=== PATIENT | male | born 1935 | race Caucasian/White ===

== ENCOUNTER 2024-03-25 14:05 | Emergency (ER) | payer OTHER, BC ==
[2024-03-25] MEDS ORDERED: NA CHLORIDE 0.9% 1,000 ML ONE (14:54)
--- NOTE | 2024-03-25 15:03 | RAD REPORT ---
EXAMINATION: ONE VIEW CHEST XR CLINICAL INDICATION: Male, 88 years old.,COUGH TECHNIQUE: Frontal chest projection is submitted. Examination is limited by patient positioning and t echnique. COMPARISON: 08/12/2022 FINDINGS: The lungs are well inflated and clear apart from stable left basilar atelectasis. No pneumothorax or sizable effusion. The heart is normal in size. Mediastinal contours are unremarkable. IMPRESSION: No acute intrathoracic abnormalities.
[2024-03-25 15:08] LABS: Absolute Basophils 0.1 K/uL (0-0.5); Absolute Lymphocytes (CBC) 0.7 K/uL (0.7-4.9); Absolute Monocytes 0.7 K/uL (0.1-1.3); Absolute Neutrophil 5.1 K/uL (1.8-8.0); Basophils % 0.9 % (0-1.3); Eosinophils % 0.3 % (0-4.4); Hematocrit 35.3 % (39.6-49.0); Hemoglobin 11.4 g/dL (13.6-17.9); Lymphocytes % 10.2 % (15.3-44.8); MCH 26.5 pg (27.0-35.0); MCHC 32.2 g/dL (32.0-36.0); MCV 82.2 fL (80-100); MPV 7.5 fL (7.6-11.3); Monocytes % 11.2 % (3.3-12.3); Neutrophils % 77.4 % (41.7-73.7); Platelets 173 thou/uL (152-406); Red Cell Distribution Width 18.4 % (12.1-15.2)
[2024-03-25 15:12] LABS: Anion Gap 9.7 mEq/L (5.0-15.0); Potassium 3.7 mEq/L (3.5-5.1); Troponin High Sensitivity 6.9 pg/mL (<58.9)
--- NOTE | 2024-03-25 15:59 | EDPHYS ---
Physician Documentation [facility] Name: Kevin Bautista Age: 88 yrs Sex: Male : 1935 Arrival Date: 03/25/2024 Time: 14:05 Bed 14 Private MD: ED Physician Rasheed Armas HPI: 03/25 14:25 This 88 yrs old Male presents to ER via EMS with complaints of Syncope. ec2 14:25 Patient arrives today for evaluation of this. Patient reports that he was getting out ec2 of his car, became lightheaded and almost passed out where he needed to be lowered down. Some decreased PO intake yesterday, some nausea, no vomiting. Some bouts of diarrhea as well. . Historical: - Allergies: 14:16 Iodine; me1 - PMHx: 14:16 Atrial fibrillation; diabetes mellitus; Hypercholesterolemia; Hypertensive disorder; me1 neuropathy; - PSHx: 14:16 Tonsillectomy; Repair of inguinal hernia; Hemorrhoidectomy; me1 - Immunization history:: Adult Immunizations up to date. - Infectious Disease History:: Denies. - Social history:: Smoking status: Patient/guardian denies using tobacco, but has a distant history of tobacco abuse. ROS: 14:25 Constitutional: as per hpi ec2 Exam: 14:25 Constitutional: GEN: NAD Head: atraumatic Eyes: EOMI Ears: External ears are ec2 normal. CV: regular rate LUNGS: no respiratory distress ABD: non-distended, soft, non-tender SKIN: no evidence of rashes MSK: no evidence of trauma Vital Signs: 14:10 BP 108 / 59; Pulse 80; Resp 18; Temp 98.4; Pulse Ox 98% ; Weight 102.06 kg; Height 5 me1 ft. 11 in. ; Pain 0/10; 15:00 BP 115 / 63; Pulse 77; Resp 22; Pulse Ox 98% ; me1 16:00 BP 111 / 68; Pulse 62; Resp 18; Temp 98.7; Pulse Ox 100% ; me1 14:10 Body Mass Index 31.38 (102.06 kg, 180.34 cm) me1 14:10 Pain Scale: Adult me1 MDM: 14:15 Medical Screening Exam initiated ec2 14:25 Data reviewed: vital signs, nurses notes. ED course: Patient arrives today d/t concern ec2 for pre-syncope. exam remarkable for well appearing, non-toxic individual who is in no acute distress. will obtain labs, ekg, cxr. ddx includes arrhythmia, anemia, electrolyte disturbances. . 15:10 ED course: EKG independently reviewed and interpreted by me, shows afib, rate of 90, no ec2 acute st segment elevations, intervals non-concerning. . 15:22 ED course: Metabolic profile reassuring. CBC with minimal anemia noted, troponin within ec2 normal ranges. Chest x-ray shows no acute intrathoracic process.. 15:59 ED course: On reassessment patient is well-appearing no acute distress and appears to ec2 be back at baseline. Will discharge home have the patient follow-up PCP, cardiology. Return precautions given.. 03/25 14:24 Order name: Basic Metabolic Panel; Complete Time: 15:22 ec2 03/25 14:24 Order name: CBC with Diff; Complete Time: 15:22 ec2 03/25 14:24 Order name: Troponin HS; Complete Time: 15:22 ec2 03/25 14:24 Order name: XRAY Chest (1 view); Complete Time: 15:22 ec2 03/25 14:24 Order name: Cardiac monitoring; Complete Time: 14:56 ec2 03/25 14:24 Order name: EKG - Nurse/Tech; Complete Time: 14:56 ec2 03/25 14:24 Order name: IV Saline Lock; Complete Time: 14:43 ec2 03/25 14:24 Order name: Labs collected and sent; Complete Time: 14:43 ec2 03/25 14:24 Order name: O2 Per Protocol; Complete Time: 14:43 ec2 03/25 14:24 Order name: O2 Sat Monitoring; Complete Time: 14:43 ec2 Administered Medications: 14:55 Drug: NS 0.9% IV 1000 ml IV at 1 bolus Per protocol; to be given as a bolus over 60 me1 minutes Route: IV; Rate: 1 bolus; Site: right hand; 16:08 Follow up: Response: No adverse reaction; IV Status: Completed infusion; IV Intake: me1 1000ml Disposition Summary: 03/25/24 15:59 Discharge Ordered Notes: Location: Home ec2 Condition: Stable ec2 Diagnosis - Syncope Near ec2 Followup: ec2 - With: Private Physician - When: - Reason: Re-evaluation by your physician Followup: ec2 - With: Isaac Hatfield MD - When: - Reason: Recheck today's complaints Discharge Instructions: - Discharge Summary Sheet ec2 - Near-Syncope ec2 Forms: - Medication Reconciliation Form ec2 - Antibiotic Education ec2 - Prescription Opioid Use ec2 - Patient Portal Instructions ec2 - Leadership Thank You Letter ec2 Signatures: Dispatcher [employer] EDVerónica Obregon RN RN mn1 Rasheed Armas MD MD ec2 Corrections: (The following items were deleted from the chart) 14:24 14:24 BASIC METABOLIC PANEL+C.LAB.BRZ ordered. EDMS EDMS 14:24 14:24 CBC+H.LAB.BRZ ordered. EDMS EDMS 14:24 14:24 Troponin High Sensitivity+C.LAB.BRZ ordered. EDMS EDMS 14:24 14:24 Chest Single View+RAD.RAD.BRZ ordered. EDMS EDMS
--- NOTE | 2024-03-25 15:59 | ER ---
Nurse's Notes [facility] Name: Kevin Bautista Age: 88 yrs Sex: Male : 1935 Arrival Date: 03/25/2024 Time: 14:05 Bed 14 Private MD: Diagnosis: Syncope Near Presentation: 03/25 14:10 Chief complaint: EMS states: toned out for syncopal episode. Patient was getting out of co1 car, stood up and became nauseated, passed out. Daughter was there and able to assist him to the ground preventing fall. Patient states he didn't have an appetite yesterday and started having diarrhea today. BGL 183. 20g R hand. Coronavirus screen: Vaccine status: Patient reports receiving the 2nd dose of the covid vaccine. Ebola Screen: No symptoms or risks identified at this time. Initial Sepsis Screen: Does the patient meet any 2 criteria? No. Patient's initial sepsis screen is negative. Does the patient have a suspected source of infection? No. Patient's initial sepsis screen is negative. Risk Assessment: Do you want to hurt yourself or someone else? Patient reports no desire to harm self or others. Onset of symptoms was March 25, 2024 at 13:30. 14:10 Method Of Arrival: EMS: [facility] [place] 14:10 Acuity: [place] 3 me1 Triage Assessment: 14:16 General: Appears comfortable, well groomed, well developed, well nourished, Behavior is me1 calm, cooperative, appropriate for age. Pain: Denies pain. EENT: No signs and/or symptoms were reported regarding the EENT system. Neuro: Level of Consciousness is awake, alert, obeys commands, Oriented to person, place, time, situation, Appropriate for age Reports a syncopal episode. Cardiovascular: Patient's skin is warm and dry. Respiratory: Airway is patent Respiratory effort is even, unlabored, Respiratory pattern is regular, symmetrical. GI: Reports nausea. : No signs and/or symptoms were reported regarding the genitourinary system. Derm: Skin is intact, is healthy with good turgor, Skin is pink, warm \T\ dry. Musculoskeletal: No signs and/or symptoms reported regarding the musculoskeletal system. Historical: - Allergies: 14:16 Iodine; me1 - PMHx: 14:16 Atrial fibrillation; diabetes mellitus; Hypercholesterolemia; Hypertensive disorder; me1 neuropathy; - PSHx: 14:16 Tonsillectomy; Repair of inguinal hernia; Hemorrhoidectomy; me1 - Immunization history:: Adult Immunizations up to date. - Infectious Disease History:: Denies. - Social history:: Smoking status: Patient/guardian denies using tobacco, but has a distant history of tobacco abuse. Screenin:21 [facility] ED Fall Risk Assessment (Adult) History of falling in the last 3 months, me1 including since admission No falls in past 3 months (0 pts) Confusion or Disorientation No (0 pts) Intoxicated or Sedated No (0 pts) Impaired Gait No (0 pts) Mobility Assist Device Used No (0 pt) Altered Elimination No (0 pt) Score/Fall Risk Level 0 - 2 = Low Risk Maintained a safe environment, Provided non-skid footwear, Hourly rounding (assess needs \T\ fall precautionary measures) done. Abuse screen: Denies threats or abuse. Nutritional screening: No deficits noted. Tuberculosis screening: No symptoms or risk factors identified. Assessment: 14:21 General: See triage assessment. . Neuro: Level of Consciousness is awake, alert, obeys co1 commands, Oriented to person, place, time, situation, Appropriate for age. 16:08 Cardiovascular: Rhythm is atrial fibrillation. co1 Vital Signs: 14:10 BP 108 / 59; Pulse 80; Resp 18; Temp 98.4; Pulse Ox 98% ; Weight 102.06 kg; Height 5 me1 ft. 11 in. ; Pain 0/10; 15:00 BP 115 / 63; Pulse 77; Resp 22; Pulse Ox 98% ; me1 16:00 BP 111 / 68; Pulse 62; Resp 18; Temp 98.7; Pulse Ox 100% ; me1 14:10 Body Mass Index 31.38 (102.06 kg, 180.34 cm) me1 14:10 Pain Scale: Adult co1 ED Course: 14:09 Patient arrived in ED. me1 14:14 Rasheed Armas MD is Attending Physician. ec2 14:16 Triage completed. me1 14:16 Arm band placed on Patient placed in an exam room. me1 14:21 Patient has correct armband on for positive identification. Bed in low position. Call co1 light in reach. Side rails up X2. Provided Education on: POC. Verbalized understanding. . Client placed on continuous cardiac and pulse oximetry monitoring. NIBP monitoring applied. teletypesetter monitor on. Pulse ox on. NIBP on. 14:21 No provider procedures requiring assistance completed. Maintain EMS IV. Dressing me1 intact. Good blood return noted. Site clean \T\ dry. Gauge \T\ site: 20g R hand. Flushed with 10 mL NS. 14:25 Verónica Mi, RN is Primary Nurse. me1 14:52 XRAY Chest (1 view) In Process Unspecified. EDMS 14:56 Initial lab(s) drawn, by me, sent to lab. EKG done, by ED staff, reviewed by Rasheed Armas MD. 15:59 Isaac Hatfield MD is Referral Physician. ec2 16:24 IV discontinued, intact, bleeding controlled, No redness/swelling at site. Pressure me1 dressing applied. Administered Medications: 14:55 Drug: NS 0.9% IV 1000 ml IV at 1 bolus Per protocol; to be given as a bolus over 60 me1 minutes Route: IV; Rate: 1 bolus; Site: right hand; 16:08 Follow up: Response: No adverse reaction; IV Status: Completed infusion; IV Intake: me1 1000ml Medication: 14:21 VIS not applicable for this client. me1 Intake: 16:08 IV: 1000ml; Total: 1000ml. me1 Outcome: 15:59 Discharge ordered by . ec2 16:24 Discharged to home via wheelchair, with family, me1 16:24 Condition: stable 16:24 Discharge instructions given to patient, family, Instructed on discharge instructions, follow up and referral plans. Demonstrated understanding of instructions, follow-up care, 16:25 Patient left the ED. me1 Signatures: Dispatcher [employer] Verónica Tim, MIRNA BRADLEY me1 Rasheed Armas MD MD ec2
[2024-03-25 18:41] VITALS: BP 111/68; TEMP 98.7; O2SAT 100
--- NOTE | 2024-03-27 11:38 | EKG ---
Test Date: 2024-03-25 Test Time: 14:50:05 Product Development Chemist: MEASUREMENT RESULTS: Intervals: Rate: 90 [place]: QRSD: 94 QT: 342 QTc: 418 [place]: P: [place]: QRS: 25 T: 85 INTERPRETIVE STATEMENTS: Atrial fibrillation Nonspecific T wave abnormality, probably digitalis effect Abnormal ECG Compared to ECG 08/12/2022 16:06:34 T-wave abnormality now present Ventricular premature complex(es) no longer present Left bundle-branch block no longer present Electronically Signed On 03-27-24 11:34:18 SALES ORDER CLERK by Evan Jordan
== END 2024-03-25 16:25 | disposition home or self-care (01) ==
LOC: ER 14:05
DX: R55 Syncope and collapse (principal); E11.9 Type 2 diabetes mellitus without complications; E78.00 Pure hypercholesterolemia, unspecified; I10 Essential (primary) hypertension; I48.11 Longstanding persistent atrial fibrillation; Z91.09 Other allergy status, other than to drugs and biological substances
CPT/HCPCS: 93005; 85025; 80048; 36415; 84484; 71045; 96360; 99285; J7030